=== PATIENT | female | born 1995 | race African-American/Black ===

== ENCOUNTER 2020-06-15 04:25 | Observation (INO) | payer MEDICAID, SELFPAY ==
[2020-06-15] VITALS (11 sets, daily range): BP systolic 108–129; BP diastolic 68–84; PULSE 87–108; RESP 14; TEMP 36.6–37.4; O2SAT 100; BMI 25.3
--- NOTE | ~2020-06-15 | US_ITS ---
EXAMINATION: US right upper quadrant DATE: 06/15/2020 09:52 INDICATION: Right upper quadrant pain TECHNIQUE: Multiple grayscale and Doppler ultrasound images of the abdomen were obtained. COMPARISON: None available FINDINGS: The head and and body of the pancreas are normal. The pancreatic tail is obscured by bowel gas. There is intrahepatic and extrahepatic biliary dilatation. The common bile duct measures up to 1 1 mm. No surface nodularity. Normal hepatopetal flow in the main portal vein. The gallbladder is surg ically absent. There is a possible 8 mm stone of the distal common bile duct. Incidental note is made of right hydronephrosis of unclear etiology. IMPRESSION: 1. Intrahepatic and extrahepatic biliary dilatation with possible stone of the distal common bile rohan t. 2. Incidentally noted right hydronephrosis of unclear etiology. Reviewed, dictated and finalized at location A. IMPRESSION: 1. Intrahepatic and extrahepatic biliary dilatation with possible stone of the distal common bile duct. 2. Incidentally noted right hydronephrosis of unclear etiology.
--- NOTE | ~2020-06-15 | MR_ITS ---
EXAMINATION: MR MRCP wo con/w 3D wo ind pp DATE: 06/15/2020 10:25 INDICATION: Right upper quadrant abdominal pain. Abnormal liver function tests. TECHNIQUE: Magnetic resonance imaging (MRI) of the abdomen was performed without intravenous contrast . Sequences included coronal T2-weighted FS FSE, coronal T2-weighted FSE, axial T1-weighted LAVA, cor onal FS FIESTA, axial dual-echo T1-weighted SPGR, coronal lava-FLEX, sagittal T2-weighted FSE, axial T2-weighted FSE, and axial DWI. Thick-slab T2-weighted FSE images were obtained for magnetic resonanc e cholangiopancreatography (MRCP). Maximum intensity projection 3-D reconstructions of the volumetric data were created by the technologist. COMPARISON: Ultrasound 06/15/2020 FINDINGS: ABDOMEN MRI: There is moderate intrahepatic biliary duct dilatation. The common duct is dilated to 14 mm. There is a 4 mm nonobstructing stone in the common duct. The spleen, pancreas, and adrenal gland s are normal. There is moderate right hydronephrosis and hydroureter. Left kidney is normal. There ar e no dilated loops of bowel. The appendix is not visualized. There is a single intrauterine gestation in vertex presentation. The placenta is left anterior. ABDOMEN MRCP: There is moderate intrahepatic biliary duct dilatation. The common duct is dilated to 1 4 mm. There is a 4 mm nonobstructing stone in the common bile duct. IMPRESSION: 1. 4 mm nonobstructing stone in the common bile duct. Moderate intrahepatic and extrahepatic biliary duct dilatation. 2. Moderate right hydronephrosis and hydroureter. Reviewed, dictated and finalized at location A.
--- NOTE | 2020-06-15 04:26 | PC.NURSE ---
PT TO OB PER ED CHARGE NURSE.
--- NOTE | 2020-06-15 04:27 | PC.NURSE ---
SPOKE WITH TRUDY FROM OB. ALL THE NURSES WERE BUSY. TOLD HER WE WERE SENDING A 38 WEEK WITH UPPER ABD PAIN OVER
[2020-06-15 05:56] LABS: Basophils Percent Auto 0.4 % (0.2-1.2); Eosinophils Absolute Auto 0.1 K/mm3 (0-0.3); Eosinophils Percent Auto 1.1 % (0-4.4); Hematocrit 39.6 % (37.0-47.0); Hemoglobin 13.5 g/dL (12.0-15.0); Immature Granulocyte Absolute 0.18 K/mm3 (0.00-0.031); Lymphocytes Absolute Auto 1.39 K/mm3 (0.9-3.2); Lymphocytes Percent Auto 15.3 % (18.3-44.2); Mean Corpuscular HGB Conc 34.1 g/dl (32-36); Mean Corpuscular Hemoglobin 31.6 pg (26-34); Mean Corpuscular Volume 92.7 fl (80-100); Mean Platelet Volume 10.4 fl (7.4-10.4); Monocytes Absolute Auto 0.6 K/mm3 (0.1-0.6); Monocytes Percent Auto 6.8 % (2.6-8.5); Neutrophils Absolute Auto 6.8 K/mm3 (1.3-6.7); Neutrophils Percent Auto 74.4 % (45.5-73.1); Platelet Count Result 153 k/mm3 (150-375); Red Blood Count 4.27 M/mm3 (4.2-5.4); Red Cell Distribution Width 13.6 % (11.5-14.5); White Blood Count 9.1 K/mm3 (4.5-10.0)
--- NOTE | 2020-06-15 06:04 | PC.NURSE ---
0425- pt came in c/o right upper epigastic pain since 2229 last evening. +vomiting, -vomiting, -fever, -diarrhea. pt states that she had similar pain back in March where she had elevated liver enzymes. [address] Olivera ( walk-in physician), informed of admission. report given. pt originally see's Dr. Coates at [facility]. cervical exam- closed. pt sadaf per monitor but pt not c/o of feeling contractions. orders received for CBC, CMP, UA, UDS, IV placement, LR-500ml bolus, LR 125ml/hr, pepcid IV, zofran IV, tums po. will continue to monitor pt and call with results/concerns.
[2020-06-15 06:08] LABS: Alanine Aminotransferase 51 U/L (4-35); Albumin Level 3.9 g/dL (3.5-5.1); Alkaline Phosphatase 319 U/L (38-126); Anion Gap 7 mmol/L (8-16); Aspartate Amino Transferase 59 U/L (14-36); Bilirubin,Total 1.4 mg/dL (0.2-1.3); Blood Urea Nitrogen 4 mg/dL (7-17); Calcium 9.4 mg/dL (8.4-10.2); Carbon Dioxide 22 mmol/L (22-30); Chloride 104 mmol/L (98-107); Estimated Glomerular Filt Rate > 60; Glucose 91 mg/dL (65-105); Potassium 3.9 mmol/L (3.4-5.0); Sodium 133 mmol/L (137-145)
[2020-06-15] MEDS: FAMOTIDINE 20 MG/2 ML VIAL IV PUSH (06:19)
[2020-06-15] MEDS: ONDANSETRON INJ 4 MG/2 ML VIAL IV PUSH (06:19)
[2020-06-15] MEDS: LACTATED RINGERS 1,000 ML 125 ML IV CONT ×2 (06:19→11:51)
--- NOTE | 2020-06-15 07:32 | PM.IMHP ---
H&P: HPI History of Present Illness Date/Time: 06/15/20 07:32 Chief complaint: EPIGASTRIC PAIN Narrative: Rosa Art is a 25 year old female G1 at 38 weeks by reported EDC, reports care with Dr. Freeman at [facility]. She came in early morning due to sudden onset epigastric pain and vomiting. She has vomited 5 times since early this am. last BM around 1 am today. No blood in vomit or stool. No slime nausea. She reports having h/o similar pain and elevated LFTS in March but no specific diagnosis. She denies other problems this . Normal movement. No contractions, leaking fluid, or vaginal bleeding. She does have h/o L/S cholecystectomy about 8 years ago Review of Systems Review of Systems: All systems reviewed & are unremarkable except as noted in HPI and below Meds Home Medications and Allergies Allergies Allergy/AdvReac Type Severity Reaction Status Date / Time No Known Allergies Allergy Verified 06/15/20 06:18 Vital Signs Vital Signs - 24 hr 06/15/20 04:23 06/15/20 05:10 06/15/20 05:16 Temperature 36.6 C Pulse Rate 108 H 102 H 91 Respiratory Rate 14 Blood Pressure 117/73 129/83 113/79 Pulse Oximetry 100 06/15/20 05:31 06/15/20 05:46 06/15/20 06:01 Temperature Pulse Rate 91 106 H 96 Respiratory Rate Blood Pressure 117/78 109/74 108/68 Pulse Oximetry 06/15/20 06:16 06/15/20 06:31 06/15/20 06:46 Temperature Pulse Rate 95 97 87 Respiratory Rate Blood Pressure 114/69 119/69 125/84 Pulse Oximetry 06/15/20 07:01 Temperature Pulse Rate 92 Respiratory Rate Blood Pressure 124/84 Pulse Oximetry Exam Const: General: uncomfortable (holding upper abdomen and grimacing) Eyes: General: appearance normal, both eyes and all related structures Resp: Auscultation: clear to auscultation bilaterally Cardio: Rate: regular rate Rhythm: regular rhythm GI: Inspection: non-distended GI Palp: Yes Soft to palpation, Yes Tenderness to palpation present (GI) (epigastric, LUQ, and RUQ) and Yes Guarding due to palpation present (GI) (voluntary) Other: gravid nontender uterus Extrem: General: no edema Psych: Mental Status: mental status grossly normal H&P: Results Labs Labs: Short CBC 06/15/20 Range/Units 05:42 WBC 9.1 (4.5-10.0) K/mm3 Hgb 13.5 (12.0-15.0) g/dL Hct 39.6 (37.0-47.0) % Plt Count 153 (150-375) k/mm3 BMP 06/15/20 05:42 Sodium 133 L Potassium 3.9 Chloride 104 Carbon Dioxide 22 BUN 4 L Creatinine 0.40 L Glucose 91 Calcium 9.4 Liver Function 06/15/20 Range/Units 05:42 Total Bilirubin 1.4 H (0.2-1.3) mg/dL AST 59 H (14-36) U/L ALT 51 H (4-35) U/L Alkaline Phosphatase 319 H (38-126) U/L Albumin 3.9 (3.5-5.1) g/dL Assessment and Plan Assessment and plan (1) Epigastric abdominal pain affecting in third trimester: Code(s): O26.893 - Other specified related conditions, third trimester; R10.13 - Epigastric pain Status: Acute Assessment and Plan: No improvement with pepcid and tums. Will give pain medication and request GI consult given the nature and location of her pain as well as elevated LFTs (2) : Code(s): Z34.90 - Encounter for supervision of normal , unspecified, unspecified trimester Status: Acute Assessment and Plan: Fetus reassuring. No current obstetrical known issues. Obtain record today to review (3) Elevated liver enzymes: Code(s): R74.8 - Abnormal levels of other serum enzymes Status: Acute Assessment and Plan: Mildly increased with h/o elevated levels in March. Records requested and request GI consult. No evidence of preeclampsia since BP normal
[2020-06-15 07:53] LABS: Add Urine Microscopic? YES; Amorphous Sediment Urine Few; Appearance Urine Cloudy (Clear); Bacteria Urine Trace /hpf; Bilirubin Urine Negative (Negative); Blood Urine Negative (Negative); Color Urine Amber (Yellow); Glucose Urine UA Negative (Negative); Ketones Urine Trace mg/dL (Negative); Leukocyte Esterase Ur Negative LEU/UL (NEGATIVE); Mucus Urine Rare /lpf; Nitrate Urine Negative (Negative); Protein Urine 1+ mg/dL (Negative); Specific Grav Ur 1.013 (1.001-1.035); Squamous Epithelial Cell Urine Occasional /hpf (Few); Urobilinogen Urine Negative mg/dL (<2.0); WBC Urine 0-3 /hpf (0-3)
[2020-06-15] MEDS: MORPHINE SULFATE 2 MG/ML INJ IV PUSH (07:53)
[2020-06-15 08:04] LABS: Amphetamine Screen Urine Negative (Negative); Barbiturate Screen Urine Negative (Negative); Benzodiazepines Screen Urine Negative (Negative); Cannabinoid Screen Urine Negative (Negative); Cocaine Screen Urine Negative (Negative); Methadone Screen Urine Negative (Negative); Opiate Screen Urine Negative (Negative); Phencyclidine Screen Urine Negative (Negative)
--- NOTE | 2020-06-15 10:06 | PM.IMHP ---
H&P: HPI History of Present Illness Date/Time: 06/15/20 10:06 Chief complaint: EPIGASTRIC PAIN Narrative: Rosa Art is a 25 year old female 1 at 32 weeks gestation who presents for flank pain. She went to the emergency department. She was found to have an elevated body temperature, elevated white count of flank pain. She had infected urine. She denies any loss of fluid, vaginal bleeding, contractions. She denies any chest pain or shortness of breath. She denies any nausea, vomiting, chills. She does report elevated by temperature/fever type symptoms. She reports good movement. She denies any urinary symptoms such as dysuria, urgency, frequency. Review of Systems Constitutional: Constitutional: Reports no additional constitutional complaints, Denies fatigue, Denies headache(s), Denies lethargy and Denies weakness Eyes: Eyes: Reports no additional eye complaints, Denies blurry vision and Denies photophobia ENT: Reports as per HPI, Denies headache(s) and Denies neck pain Cardiovascular: Cardiovascular: Denies chest pain, Denies diaphoresis, Denies leg edema, Denies palpitations and Denies dyspnea Respiratory: Respiratory: Denies hemoptysis, Denies dyspnea and Denies wheezing Gastrointestinal: Gastrointestinal: Denies abdominal pain, Denies melena, Denies bloating, Denies hematochezia, Denies nausea and Denies vomiting Genitourinary: Genitourinary: Reports no additional female genitourinary complaints Musculoskeletal: Musculoskeletal: Denies joint swelling, Denies neck pain, Denies numbness and Denies stiffness Neurologic: Denies Abnormal speech present, Denies confusion, Denies headache(s), Denies numbness and Denies weakness Psychiatric: Psychiatric: Denies anxiety, Denies confusion, Denies depression, Denies homicidal ideation and Denies suicidal ideation Endocrine: Endocrine: Denies fatigue and Denies palpitations Allergic/Immunologic: Allergic/Immunologic: Denies wheezing Meds Home Medications and Allergies Home Medications Medication Instructions Recorded Confirmed Type PNV cmb#95-ferrous fumarate-FA 1 tablet PO DAILY 06/15/20 06/15/20 History [] famotidine [Pepcid] 20 mg PO DAILY 06/15/20 06/15/20 History Allergies Allergy/AdvReac Type Severity Reaction Status Date / Time No Known Allergies Allergy Verified 06/15/20 06:18 Vital Signs Vital Signs - 24 hr 06/15/20 04:23 06/15/20 05:10 06/15/20 05:16 Temperature 97.9 F Pulse Rate 108 H 102 H 91 Respiratory Rate 14 Blood Pressure 117/73 129/83 113/79 Pulse Oximetry 100 06/15/20 05:31 06/15/20 05:46 06/15/20 06:01 Temperature Pulse Rate 91 106 H 96 Respiratory Rate Blood Pressure 117/78 109/74 108/68 Pulse Oximetry 06/15/20 06:16 06/15/20 06:31 06/15/20 06:46 Temperature Pulse Rate 95 97 87 Respiratory Rate Blood Pressure 114/69 119/69 125/84 Pulse Oximetry 06/15/20 07:00 06/15/20 07:01 Temperature 99.4 F Pulse Rate 92 Respiratory Rate Blood Pressure 124/84 Pulse Oximetry Exam Const: General: healthy appearing, comfortable and no acute distress; No confusion Orientation/consciousness: No confusion Eyes: Direct Ophthalmoscopy: No photophobia Resp: Auscultation: clear to auscultation bilaterally, no rales, no rhonchi and no wheezes Cardio: Rate: regular rate Heart sounds: no click, no murmurs and no rubs GI: Inspection: non-distended GI Palp: No abdominal tenderness Auscultation: normal bowel sounds Other: Positive flank tenderness. Neuro: General: No confusion Speech: No Abnormal speech present Extrem: General: normal to inspection, no pedal edema and no calf tenderness H&P: Results Labs Labs: Short CBC 06/15/20 Range/Units 05:42 WBC 9.1 (4.5-10.0) K/mm3 Hgb 13.5 (12.0-15.0) g/dL Hct 39.6 (37.0-47.0) % Plt Count 153 (150-375) k/mm3 [facility] 06/15/20 05:42 Sodium 133 L Potassium 3.9 Chloride 10
--- NOTE | 2020-06-15 10:50 | WPDGICN ---
Assessment and Plan Assessment and plan (1) Elevated liver enzymes: Code(s): R74.8 - Abnormal levels of other serum enzymes Status: Acute Assessment and Plan: I think she may have choledocholithiasis, awaiting on RUQ ultrasound by may need MRCP to confirm diagnosis. If stone in bile duct then will need ERPC but we need to discuss with ob-shot peening operator best timing, ideally after delivery continue with medical treatment, pain control, trend liver enzymes will check also pancreatic enzymes to rule out pancreatitis patient denies etoh use or previous history of liver disease (2) Epigastric abdominal pain affecting in third trimester: Code(s): O26.893 - Other specified related conditions, third trimester; R10.13 - Epigastric pain Status: Acute Assessment and Plan: most likely biliary component (3) Biliary pain: Code(s): K80.50 - Calculus of bile duct without cholangitis or cholecystitis without obstruction Status: Acute GI Consult Note Consult date/time: 06/15/20 10:50 Reason for consult: ruq pain with elevated liver enzymes HPI: Rosa Art is a 25 year old female originally from [facility] and previous cholecystectomy who is G1 at 38 weeks. Since March she has been having intermittent pain in RUQ that lasted few hours and started after eating, she went twice to [facility] ER and treated medically, pain went away but she is here now with moderate and persistent pain for last several hours in ruq with radiation to epigastric area. She also had nausea and vomiting. Blood work showed tb 1.5, transaminases 50, AP 319, normal WBC. She is still in pain despite morphine. Review of Systems Constitutional: Constitutional: Denies headache(s) and Denies weakness Eyes: Eyes: Denies blurry vision ENT: Reports Normal hearing present, Denies headache(s) and Denies neck pain Cardiovascular: Cardiovascular: Denies chest pain and Denies dyspnea Respiratory: Respiratory: Denies dyspnea Gastrointestinal: Gastrointestinal: Reports abdominal pain and Reports nausea Genitourinary: Genitourinary: Reports flank pain Musculoskeletal: Musculoskeletal: Denies neck pain Integumentary/Breasts: Skin/Breast: Denies dry skin Neurologic: Reports Normal hearing present, Denies headache(s) and Denies weakness Psychiatric: Psychiatric: Denies anxiety Endocrine: Endocrine: Denies change in body appearance Hematologic/Lymphatic: Hematologic/Lymphatic: Denies easy bleeding Allergic/Immunologic: Allergic/Immunologic: Denies urticaria Meds Home Medications and Allergies Home Medications Medication Instructions Recorded Confirmed Type PNV cmb#95-ferrous fumarate-FA 1 tablet PO DAILY 06/15/20 06/15/20 History [] famotidine [Pepcid] 20 mg PO DAILY 06/15/20 06/15/20 History Allergies Allergy/AdvReac Type Severity Reaction Status Date / Time No Known Allergies Allergy Verified 06/15/20 06:18 Vital Signs Vital Signs - 24 hr 06/15/20 04:23 06/15/20 05:10 06/15/20 05:16 Temperature 97.9 F Pulse Rate 108 H 102 H 91 Respiratory Rate 14 Blood Pressure 117/73 129/83 113/79 Pulse Oximetry 100 06/15/20 05:31 06/15/20 05:46 06/15/20 06:01 Temperature Pulse Rate 91 106 H 96 Respiratory Rate Blood Pressure 117/78 109/74 108/68 Pulse Oximetry 06/15/20 06:16 06/15/20 06:31 06/15/20 06:46 Temperature Pulse Rate 95 97 87 Respiratory Rate Blood Pressure 114/69 119/69 125/84 Pulse Oximetry 06/15/20 07:00 06/15/20 07:01 Temperature 99.4 F Pulse Rate 92 Respiratory Rate Blood Pressure 124/84 Pulse Oximetry Exam Const: General: no acute distress HENMT: General nose exam: Normal nares present Eyes: General: appearance normal, both eyes and all related structures Neck: Neck: no JVD Resp: Auscultation: clear to auscultation bilaterally Cardio: Rate: regular rate Rhythm: regular rhythm GI: GI Palp: Yes Tendernes
--- NOTE | 2020-06-15 12:37 | PC.NURSE ---
1150 Dr. Olivera at bedside, discussed care plan. GI Doctor recommended induction then followed by ERCp. however, pt spoke to her insurance company and since it does not cover her induction, pt willing to go to [facility], which is her original child plan. Dr. Olivera spoke to Dr. Coates about plan of care and pt willing to go to [facility]. Dr. Mendoza agreed with care plan. This RN called and notified [facility] charge nurse. MRCP and Ultrasound result was faxed over.
[2020-06-16 05:38] LABS: Amylase 90 U/L (30-110); Lipase 60 U/L (23-300)
--- NOTE | 2020-06-18 07:56 | PM.OBDSVD ---
DS: Admitting Diagnosis Admitting Diagnosis Admitting Diagnosis: EPIGASTRIC PAIN DS: Discharge Diagnosis Discharge Diagnosis (1) Bile duct calculus: Code(s): K80.50 - Calculus of bile duct without cholangitis or cholecystitis without obstruction Status: Acute OB - DS: Summary OB Procedures : NST OB Procedures Intrapartum: Other (none, did not deliver) OB Procedures: : None Status at Discharge Functional status at discharge: independent ambulation Overall status at discharge: patient is progressing back to baseline Time Spent with Patient Time attestation: Total time spent providing and/or coordinating discharge services: Time spent: Less than 30 minutes Discharge Plan Discharge Attending physician on discharge: Eboni Olivera Consulting providers: Layton Toure ; Rhonda Agrawal ; Joselito Matt ; Elmer Pinon V. Discharging Clinician: Eboni Olivera Patient Disposition: Other Activity: as tolerated Diet: as tolerated Discharge Instructions: immediate transport to [facility] for induction of labor. no drive herself. Stand Alone Forms: General Discharge Information Follow-up/Referrals: PHYSICIAN NOT ON STAFF,NONSTAFF [Non-Staff] - Discharge Medications: New famotidine 20 mg Tablet 20 mg PO DAILY RF: 0 Continued famotidine [Pepcid] 20 mg Tablet 20 mg PO DAILY RF: 0 PNV cmb#95-ferrous fumarate-FA [] 28 mg iron- 800 mcg Tablet 1 tablet PO DAILY RF: 0 Date of admission: 06/15/20 04:25 Primary Care Provider: Layton Toure Admitting Provider: Eboni Olivera Discharge Date/Time: 06/15/20 12:55 Attending physician on admission: Eboni Olivera
== END 2020-06-15 12:55 | disposition other institution (70) ==
PROVIDERS: Admitting Provider Obstetrics & Gynecology; PCP Internal Medicine Gastroenterology; Visit Provider Obstetrics & Gynecology
DX: O99.613 Diseases of the digestive system complicating pregnancy, third trimester (principal); K80.50 Calculus of bile duct without cholangitis or cholecystitis without obstruction; O23.03 Infections of kidney in pregnancy, third trimester; O26.893 Other specified pregnancy related conditions, third trimester; R74.8 Abnormal levels of other serum enzymes; Z3A.38 38 weeks gestation of pregnancy
CPT/HCPCS: 36415; 74181; 76376; 76705; 80053; 80307; 81001; 82150; 83690; 85025; 96361; 96374; 96375; G0378; G0379; J1170; J2270; J2405; J7120